=== PATIENT | female | born 1965 ===

== ENCOUNTER 2024-01-17 07:59 | Outpatient (CLI) | payer SELFPAY ==
--- NOTE | 2024-01-17 08:04 | CT_ITS ---
WS: [id number] CT CALCIUM SCORE REASON FOR VISIT: HYPERLIPIDEMIA, DYSPNEA ON EXERTION; Coronary artery disease risk assessment COMPARISON: None TECHNIQUE: Noncontrast coronary CT in combination with quantitative analysis performed on a separate workstation were used to determine CACS (Agatston score) TOTAL EXAM DOSE: 88.36 mGy.cm ECG GATING: Prospective SCAN RANGE: Pulmonary artery bifurcation to Inferior aspect of heart COMPLICATIONS: None FINDINGS: Technical Quality/Examination Quality: Good Limitation: None OVERALL SCORES Total calcium score: 168 Total volume score: 162 mm3 Percentile: 98-100% ARTERY SCORES Left main coronary artery: 2 Left anterior descending artery: 97 Left circumflex artery: 64 Right coronary artery: 1 OTHER FINDINGS: Mediastinum: Normal. Thoracic aorta: Normal. Lungs: Normal. Upper Abdomen: Normal. MINIMAL: 1-10 MILD: 11-100 MODERATE: 101-400 SEVERE:>400 CT/CT heart w calcium score 36928 IMPRESSION: 1. Calcium score 160 places the patient between the 90th and 100th percentiles for females of this age. This means that 90% of people this age and gender hav e less calcium. 2. Moderately increased risk for a cardiac event. GRADING OF CORONARY ARTERY DISEASE (BASED ON TOTAL CALCIUM SCORE) NO EVIDENCE OF CAD: 0 calcium score
== END 2024-01-17 08:00 | disposition home or self-care (01) ==
LOC: RAD 08:01
PROVIDERS: Visit Provider Family Medicine
DX: R06.09 Other forms of dyspnea (principal); E78.5 Hyperlipidemia, unspecified; Z82.49 Family history of ischemic heart disease and other diseases of the circulatory system
CPT/HCPCS: 75571